=== PATIENT | female | born 1960 | race Caucasian/White ===

== ENCOUNTER 2019-06-18 12:57 | Outpatient (CLI) | payer OTHER | END 2019-06-18 13:15 | disposition home or self-care (01) | LOC: NUCLEAR 12:57 | DX: M81.0 Age-related osteoporosis without current pathological fracture (principal) ==

== ENCOUNTER 2020-10-12 12:55 | Outpatient (CLI) | payer OTHER | END 2020-10-12 12:56 | disposition home or self-care (01) | LOC: NUCLEAR 12:55 | PROVIDERS: ATTEND Obstetrics & Gynecology Maternal & Fetal Medicine | DX: M81.0 Age-related osteoporosis without current pathological fracture (principal) ==

== ENCOUNTER → 2022-11-30 | Outpatient (CLI) | payer OTHER | END | disposition home or self-care (01) | LOC: NUCLEAR 11-12 13:30 | PROVIDERS: ATTEND Obstetrics & Gynecology Maternal & Fetal Medicine | DX: M81.0 Age-related osteoporosis without current pathological fracture (principal) ==